=== PATIENT | male | born 1955 | race Caucasian/White ===

== ENCOUNTER 2022-08-03 08:58 | Day surgery (SDC) | payer BC, SELFPAY ==
[2022-08-03] MEDS: TETRACAINE 0.5% OPHTH 1 DROP EYE-LEFT ×2 (08:30→08:35)
[2022-08-03] MEDS: KETOROLAC OPHTH 0.5% 1 DROP EYE-LEFT ×2 (08:30→08:35)
--- NOTE | 2022-08-03 09:02 | SUR.PREOP ---
The eye drops brought by the patient (Ketorolac and Prednisolone) are examined and I have determined they are labeled by the patient's pharmacy for this patient as prescribed by the surgeon. The bottles are intact, recently obtained and appear to be correct.
[2022-08-03 09:18] VITALS: BP 142/88; PULSE 68; RESP 16; TEMP 37.3; O2SAT 98
[2022-08-03 09:22] VITALS: BMI 246.9
[2022-08-03] MEDS: ETHYL CHLORIDE 1 APPLICATION 1 APPLIC TOPICAL (09:39)
[2022-08-03] MEDS: SODIUM CHLORIDE 0.9 % (FLUSH) 10 ML SYRINGE IVF (09:39)
[2022-08-03] MEDS: TETRACAINE 0.5% OPHTH 2 DROP EYE-LEFT (09:58)
[2022-08-03] MEDS: BALANCED SALT IRRIG SOLN 15 ML EYE-LEFT (10:02)
--- NOTE | 2022-08-03 10:23 | W.ANESCHARGE ---
Anesthesia Charges Start Date/Time Anesthesia Start Date: 08/03/22 Anesthesia Start Time: 09:55 Stop Date/Time Anesthesia Stop Date: 08/03/22 Anesthesia Stop Time: 10:26 Summary Emergency: No
[2022-08-03 10:25] VITALS: BP 151/84; PULSE 78; RESP 20; TEMP 37.5
--- NOTE | 2022-08-03 12:42 | P.OPTPRC_ITS ---
Procedure Note Date of procedure: 08/03/22 Will [facility] bill your pro fee for this procedure?: Yes Procedure Description: SURGEON: Zee Murguia MD PREOPERATIVE DIAGNOSIS: Nuclear sclerotic cataract, left eye. POSTOPERATIVE DIAGNOSIS: Nuclear sclerotic cataract, left eye. NAME OF OPERATION: Phacoemulsification of cataract with posterior chamber intraocular lens implantation in the left eye. ANESTHESIA: Topical. ESTIMATED BLOOD LOSS: Less than 2 cc. COMPLICATIONS: None. PATHOLOGY SPECIMEN: None. INDICATIONS: See consult note for details. The risks, benefits and alternatives of the procedure were explained to the patient, who elected to proceed and sign ed informed consent to do so. PROCEDURE: The patient was brought to the pre-holding area where the left eye was identified as the operative eye. I placed my initials above this eye. The patient received eye drops consisting of 0.5% tetracaine, 1% tropicamide, 10% phenylephrine, and 0.5% ketorolac. The patient was then brought to the operating room where the left eye was again identified as the operative eye. The eye was prepped with Betadine and draped in the usual sterile ophthalmic fashion. A #15 super-sharp blade was used to create a paracentesis site. 1% non-preserved intracameral lidocaine was injected into the anterior chamber. Endocoat was injected into the anterior chamber. A 2.4 mm keratome was used to create a three-plane self-sealing incision 1 mm anterior to the temporal limbus. A cystotome was used to create an anterior capsular leaflet. The Utrata forceps were used to extend this to form a continuous curvilinear capsulorrhexis. Hydrodissection was performed. The cataract was removed with phacoemulsification using the [id number] technique. The irrigation and aspiration tip was used to remove the remaining cortex. Healon was injected into the capsular bag. An MIGUEL ZCB00 intraocular lens of 20.0 diopters was injected into the capsular bag. The irrigation and aspiration tip was used to remove the remaining viscoelastic. Miostat as injected into the anterior chamber due to intermittent mild iris prolapse. Balanced salt solution on a cannula was used to hydrate the wound, and the wound was found to be watertight. The pupil was noted to be round. DISPOSITION: The patient was taken to the recovery room and discharged to home in stable condition. The patient was instructed to call me or go to the emergency department with any sudden change, including dramatic loss of vision, severe pain in the eye or eyebrow region, nausea, or vomiting. The patient will follow up in the clinic tomorrow morning. Surgeon: Zee Mugruia MD
== END 2022-08-03 10:40 | disposition home or self-care (01) ==
PROVIDERS: PCP Family Medicine; Visit Provider Ophthalmology
PROC: (CPT 66984; principal; 2022-08-03 09:00)
DX: H25.12 Age-related nuclear cataract, left eye (principal)
CPT/HCPCS: 66984; 00142; A9270; J2250; J3010; V2632

== ENCOUNTER 2023-04-20 11:15 | Outpatient (RCR) | payer BC, SELFPAY | END 2023-04-20 15:15 | disposition home or self-care (01) | PROVIDERS: PCP Family Medicine; Visit Provider Family Medicine | DX: M62.81 Muscle weakness (generalized) (principal); W19.XXXS Unspecified fall, sequela; R26.81 Unsteadiness on feet; Z51.89 Encounter for other specified aftercare | CPT/HCPCS: 97110; 97112; 97116; 97162 ==

== ENCOUNTER 2023-06-05 06:26 | Outpatient (CLI) | payer BC, SELFPAY ==
--- NOTE | 2023-06-05 07:41 | W.ANESCHARGE ---
Anesthesia Charges Start Date/Time Anesthesia Start Date: 06/05/23 Anesthesia Start Time: 07:20 Stop Date/Time Anesthesia Stop Date: 06/05/23 Anesthesia Stop Time: 07:40
== END 2023-06-05 06:27 | disposition home or self-care (01) ==
LOC: OP CLINIC 06:29
PROVIDERS: PCP Family Medicine; Visit Provider Internal Medicine Gastroenterology
DX: R63.4 Abnormal weight loss (principal); K31.89 Other diseases of stomach and duodenum; K92.2 Gastrointestinal hemorrhage, unspecified; K31.7 Polyp of stomach and duodenum; D64.9 Anemia, unspecified
CPT/HCPCS: 43239; 731; 88305; J2704

== ENCOUNTER 2024-04-17 11:02 | Emergency (ER) | payer BC, MEDICARE, SELFPAY ==
[2024-04-17] VITALS (15 sets, daily range): BP systolic 154–166; BP diastolic 84–93; PULSE 69–86; RESP 16; TEMP 37; O2SAT 95–99; BMI 22.0
--- NOTE | 2024-04-17 11:32 | CRLHL7_ITS ---
For Patients: As a result of the Century Cures Act, medical imaging exams and procedure reports are released immediately into your electronic medical record. You may view this report before your referring provider. If you have questions, please contact your health care provider. Indication: Dizziness, unsteady Technique: Multiplanar, multisequence MRI of the brain obtained without contrast. Comparison: MRI brain 10/12/2021 Findings: Mild diffuse prominence of the ventricles and cortical sulci, compatible with generalized cerebral volume loss. Minor scattered FLAIR hyperintense foci throughout the supratentorial white matter, typical of chronic microangiopathy. No acute/subacute ischemia, intracranial hemorrhage, or abnormal extra-axial fluid collection. No midline shift, hydrocephalus, or herniation. Midline structures are unremarkable. Major expected intracranial flow voids are visualized. Partially opacified right posterior ethmoid air cells. Trace nonspecific fluid at the mastoid tips. Bilateral lens implants. Impression: 1. No evidence of acute intracranial abnormality, or significant interval change relative to 10/12/2021. 2. Similar mild generalized cerebral volume loss, and minimal chronic microangiopathy changes. Dictated by Angie Dockery MD @ 04/17/2024 1:03:54 PM (Electronically Signed)
--- NOTE | 2024-04-17 11:42 | ED_ITS ---
HPI - General Adult General Chief complaint: Neuro Symptoms/Altered Deficit Stated complaint: Slurred speech a few days ago, weakness, diarrhea Time Seen by Provider: 04/17/24 11:11 Source: patient and family Mode of arrival: ambulatory (Walker) Limitations: no limitations History of Present Illness HPI narrative: 68-year-old male presenting today with several concerns. Patient states that approximately 4 days ago he was taking a nap and when he woke up he had trouble moving the left side of his face and he had slurred speech for approximately 20 minutes. On Monday, which was 3 days ago he started developing increased unsteadiness and generalized weakness. Generally he uses a walker or a cane to use, he needed a wheelchair all day on Monday and now he is back to a walker. Last night he had stool incontinence and diarrhea started, he has had 5 episodes of diarrhea today. He denies chest pain or shortness of breath. No fevers or chills. No nausea or vomiting. No changes in his appetite. Denies headache, blurry vision or changes in his hearing. He denies any focal neurologic deficits including weakness on 1 side of the body. He denies returning of difficulty with his speech. He states that his face has been moving normally since. Patient denies any recent antibiotic use, no recent travel. Past medical history is significant for alcohol use disorder, renal insufficiency, elevated liver enzymes, essential tremor, history of basal cell carcinoma, hypertension. Patient takes atenolol and omeprazole daily. Denies other medications. Denies history of coronary artery disease or stroke history. His on any aspirin or anticoagulation. Patient does drink 8 mini bottles of alcohol every day, throughout the day. Related Data Home Medications ?Medication ?Instructions ?Recorded ?Confirmed folic acid 1 mg tablet 1 mg PO DAILY 08/02/22 04/17/24 magnesium oxide 500 mg PO .EVERY OTHER DAY 08/02/22 08/03/22 multivitamin 1 tab PO DAILY 08/02/22 04/17/24 thiamine HCl (vitamin B1) 100 mg 100 mg PO DAILY 08/02/22 04/17/24 tablet atenolol 25 mg tablet 25 mg PO DAILY 04/17/24 04/17/24 ferrous sulfate 325 mg (65 mg PO 04/17/24 iron) tablet,delayed release magnesium glycinate 200 mg PO 04/17/24 omeprazole 40 mg capsule,delayed 40 mg PO DAILY 04/17/24 04/17/24 release Allergies Allergy/AdvReac Type Severity Reaction Status Date / Time sertraline Allergy Unknown Verified 04/17/24 11:14 Penicillins Allergy Verified 08/03/22 09:16 Review of Systems Status of ROS: Reports: 10 or more systems reviewed and unremarkable except as noted in History and below [facility] Medical History Osteopenia of multiple sites ?M85.89 - Other specified disorders of bone density and structure, multiple sites (ICD-10) Alcohol dependence, daily use ?F10.20 - Alcohol dependence, uncomplicated (ICD-10) Renal insufficiency ?N28.9 - Disorder of kidney and ureter, unspecified (ICD-10) Macrocytic anemia ?D53.9 - Nutritional anemia, unspecified (ICD-10) Elevated PSA ?R97.20 - Elevated prostate specific antigen [PSA] (ICD-10) Elevated liver function tests ?R79.89 - Other specified abnormal findings of blood chemistry (ICD-10) Fatty liver ?K76.0 - Fatty (change of) liver, not elsewhere classified (ICD-10) Colon polyp ?K63.5 - Polyp of colon (ICD-10) Essential tremor ?G25.0 - Essential tremor (ICD-10) Basal cell carcinoma of neck ?C44.41 - Basal cell carcinoma of skin of scalp and neck (ICD-10) Basal cell carcinoma of cheek ?C44.319 - Basal cell carcinoma of skin of other parts of face (ICD-10) Sensory peripheral neuropathy ?G60.8 - Other hereditary and idiopathic neuropathies (ICD-10) Hypertension ?I10 - Essential (primary) hypertension (ICD-10) Surgical History Hx of wisdom tooth extraction ?K08.409 - Partial loss of teeth, unspecified cause, unspecified class (ICD- 10) Hx of colonoscopy ?Z98.890 - Other specified postprocedural states (ICD-10) Social History Smoking Status: Never smoker How often do you have a drink containing alcohol: 4 or more times a week Alcohol type: beer, wine and hard liquor How many standard drinks containing alcohol do you have on a typical day: 10 or more How often do you have six or more drinks on one occasion: Daily or almost daily AUDIT-C Alcohol total score: 12 Non-prescribed substance use: denies use Caffeine: Yes (daily) Exam Narrative: Exam Narrative: Well-nourished well-developed patient in no acute distress. Alert and oriented x3. Answers questions appropriately. Mood and affect are appropriate. Thoughts are goal oriented and rational. No tangential or magical thinking noted. Patient speaks in full sentences without needing to catch his breath. Speech is not slurred or pressured. HEENT: Normocephalic atraumatic. Face is symmetric. Pupils are equally round reactive to light. Extraocular muscles are intact. Conjunctivae are moist without any icterus noted. Moist mucous membranes. Posterior pharynx is normal. Neck is soft without any lymphadenopathy or thyromegaly. No masses are appreciated. Cardiovascular: Heart is regular rate and rhythm S1 and S2 are present without any murmurs. Lungs: Clear to auscultation bilaterally no wheezes rhonchi or rales are appreciated. Patient takes deep breaths without any discomfort. Abdomen: Soft and nontender nondistended with normal bowel sounds. Extremities: Bilateral lower extremities are without edema. Normal DP and PT pulses. Skin: Well perfused. Strength is 4/5 of the upper and lower extremities. Reflexes are 2+ and symmetric at the knees. Cranial nerves 3-12 are normal. [id number] is as expected with his tremor. There is no nystagmus either horizontally or vertically. No pronator drift present. Const: Vital Signs, click to edit/add: Vital Signs - 24 hr 04/17/24 11:07 04/17/24 11:32 04/17/24 11:41 Temperature 98.6 F Pulse Rate 75 Pulse Rate [Pulse Oximeter] 81 Respiratory Rate 16 Blood Pressure Blood Pressure [Ri ght Upper Arm] 163/84 H Pulse Oximetry 97 96 97 Oxygen Delivery Me thod Room Air 04/17/24 11:42 04/17/24 11:45 04/17/24 12:18 Temperature Pulse Rate 75 78 86 Pulse Rate [Pulse Oximeter] Respiratory Rate Blood Pressure 166/93 H Blood Pressure [Ri ght Upper Arm] Pulse Oximetry 97 96 95 Oxygen Delivery Me thod 04/17/24 12:30 04/17/24 12:31 04/17/24 13:00 Temperature Pulse Rate 72 79 78 Pulse Rate [Pulse Oximeter] Respiratory Rate Blood Pressure 154/90 H Blood Pressure [Ri ght Upper Arm] Pulse Oximetry 96 96 98 Oxygen Delivery Me thod 04/17/24 13:01 04/17/24 13:02 04/17/24 13:30 Temperature Pulse Rate 71 69 71 Pulse Rate [Pulse Oximeter] Respiratory Rate 16 Blood Pressure 158/89 H Blood Pressure [Ri ght Upper Arm] Pulse Oximetry 97 96 97 Oxygen Delivery Me thod 04/17/24 14:00 04/17/24 14:12 04/17/24 14:13 Temperature Pulse Rate 70 69 69 Pulse Rate [Pulse Oximeter] Respiratory Rate Blood Pressure 156/87 H Blood Pressure [Ri ght Upper Arm] Pulse Oximetry 97 98 99 Oxygen Delivery Me thod Course Course ED Course: I did consult with Dr. Polo, stroke neurologist at [facility], he recommends MRI at this time and no CT scan unless MRI is grossly abnormal. In the meantime, labs were drawn: CBC shows a slightly low hemoglobin and thrombocytopenia. INR of 0.89. Renal insufficiency with a creatinine of 1.7 and BUN of 31. LFTs elevated with an AST of 133 and ALT of 63. CRP is elevated at 6.9. Normal troponin, negative alcohol levels. EKG, read by me, shows normal sinus rhythm with a pulse of 71 in the left axis deviation. Patient was unable to give a urine sample after several hours in the ED, because of this we did give him a L of normal saline. Patient was then able to give us a urine sample, UA does show 2+ blood, ketones and proteins. The MRI results returned without any abnormalities. Did discuss these results with Dr. Polo who is not convinced that this was a neurological event verses a lcohol-induced or other illness. Given his thrombocytopenia and unremarkable MRI at this time he does not recommend putting the patient on a daily baby aspirin but this is something that the patient can discuss with his primary care provider. Vital Signs Vital signs: Initial Vital Signs Temperature 98.6 F 04/17/24 11:07 Temperature Source Temporal Artery Scan 04/17/24 11:07 Pulse Rate 81 04/17/24 11:07 Respiratory Rate 16 04/17/24 11:07 Blood Pressure 163/84 H 04/17/24 11:07 Blood Pressure Mean 110 H 04/17/24 11:07 Blood Pressure Position Sitting 04/17/24 11:07 Pulse Oximetry 97 04/17/24 11:07 Oxygen Delivery Method Room Air 04/17/24 11:07 Vital Signs Temperature 98.6 F 04/17/24 11:07 Pulse Rate 81 04/17/24 11:07 Respiratory Rate 16 04/17/24 11:07 Blood Pressure 163/84 H 04/17/24 11:07 Pulse Oximetry 97 04/17/24 11:07 Oxygen Delivery Method Room Air 04/17/24 11:07 Temperature 98.6 F 04/17/24 11:07 Pulse Rate 69 04/17/24 14:13 Respiratory Rate 16 04/17/24 13:30 Blood Pressure 156/87 H 04/17/24 14:12 Pulse Oximetry 99 04/17/24 14:13 Oxygen Delivery Method Room Air 04/17/24 11:07 Medications Administered Medications: Discontinued Medications Generic Name Dose Route Start Last Admin Trade Name Giancarlo PRN Reason Stop Dose Admin Sodium Chloride 1,000 mls @ 1,000 mls/hr 04/17/24 13:15 04/17/24 14:14 0.9 % Sodium Chloride 1000 Ml IV 04/17/24 14:14 Infused .Q1H HERNAN Infusion Medical Decision Making [facility] Narrative Medical decision making narrative: 68-year-old male presenting with several concerns including slurred speech which resolved, increased weakness now improving, diarrhea. Workup today found hematuria and renal insufficiency. Did not have patient's previous labs to compare this to but there is a note in the chart of previous renal insufficiency. MRI was unremarkable. At this time patient is recommended to follow up with primary care provider to discuss his abnormal lab results and to make sure he is feeling better over the next few days. He was unable to give us a stool sample while he was in the ER today therefore he will be sent home with a stool collecting kit to test for C diff. Encourage patient to increase water intake and decrease alcohol intake. Patient and had no other questions. Lab Data Lab results reviewed: Yes I reviewed the patient's lab results Labs: Lab Results 04/17/24 04/17/24 04/17/24 Range/Units 11:29 11:45 14:15 WBC 6.69 (4.50-11.00) K/uL RBC 4.00 L (4.30-5.90) m/uL Hgb 13.3 L (13.5-17.5) gm/dL Hct 40.5 (37.0-53.0) % MCV 101 H (80-100) fL MCH 33 (26-34) pg MCHC 33 (32-36) gm/dL RDW Coeff of Estela 13.1 (11.5-15.5) % Plt Count 73 L (140-440) K/uL Neut % (Auto) 78.2 H (42.0-72.0) % Lymph % (Auto) 14.3 L (20-44) % [place] % (Auto) 7.2 (0.0-11.0) % Eos % (Auto) 0.1 (0.0-7.0) % Baso % (Auto) 0.1 (0.0-3.0) % Neut # (Auto) 5.20 (1.7-7.0) K/uL Lymph # (Auto) 1.00 (0.90-2.90) K/uL [place] # (Auto) 0.50 (0.00-0.90) K/UL Eos # (Auto) 0.01 (0.00-0.50) K/uL Baso # (Auto) 0.01 (0.00-0.30) K/uL Abs Immat Gran (auto) 0.01 (0.00-0.30) K/uL Imm/Tot Granulo (auto) 0.1 % INR 0.89 L (0.91-1.10) Sodium 135 (135-149) mmol/L Potassium 4.3 (3.6-5.1) mmol/L Chloride 95 L (96-114) mmol/L Carbon Dioxide 22 (20-32) mmol/L Anion Gap 18 H (7-15) mEq/L BUN 31 H (7-30) mg/dL Creatinine 1.7 H (0.5-1.5) mg/dL Estimated Creat Clear 43.32 Estimated GFR 43 ml/min Glucose 104 (60-115) mg/dL Lactate 1.9 (0.5-1.9) mmol/L Calcium 9.0 (8.4-10.6) mg/dL Magnesium 1.6 (1.5-2.6) mg/dL Total Bilirubin 0.9 (0.1-1.5) mg/dL Direct Bilirubin 0.5 (0.0-0.5) mg/dL AST 133 H (12-35) U/L ALT 63 H (4-50) U/L Alkaline Phosphatase 105 (40-150) U/L Troponin I 0.01 (0.01-0.04) ng/mL C-Reactive Protein 6.9 H (0.5-1.0) mg/dL Total Protein 7.2 (6.0-8.3) g/dL Albumin 4.6 (3.3-5.0) g/dL Urine Color Yellow (Yellow) Urine Appearance Clear (Clear) Urine pH 6.5 (5.0-8.5) Ur Specific Nancy 1.020 (1.000-1.030) Urine Protein 2+ A (Negative) Urine Glucose (UA) Negative (Negative) Urine Ketones 2+ A (Negative) Urine Blood 2+ A (Negative) Urine Nitrite Negative (Negative) Urine Bilirubin 2+ A (Negative) Urine Urobilinogen 0.2 (0.2-1.0) Ur Leukocyte Esterase Negative (Negative) Urine RBC 5-10 A (0-2) Urine WBC 0-2 (0-5) Ur Squamous Epith Cells Few (None-Few) Urine Bacteria None (None) Ethyl Alcohol < 0.01 L (0.01-0.03) % POC Troponin I 0.00 L (0.01-0.04) ng/ml Imaging Data MR Brain: Attestation: I have reviewed the pertinent imaging results. Radiologist's impression: Procedure(s): MR head/brain wo [facility] Accession Number(s): [id number] cc: Roby Steiner M.D.; Soraya Ramirez M.D.~ For Patients: As a result of the 21st Century Cures Act, medical imaging exams and procedure reports are released immediately into your electronic medical record. You may view this report before your referring provider. If you have questions, please contact your health care provider. Indication: Dizziness, unsteady Technique: Multiplanar, multisequence MRI of the brain obtained without contrast. Comparison: MRI brain 10/12/2021 Findings: Mild diffuse prominence of the ventricles and cortical sulci, compatible with generalized cerebral volume loss. Minor scattered FLAIR hyperintense foci throughout the supratentorial white matter, typical of chronic microangiopathy. No acute/subacute ischemia, intracranial hemorrhage, or abnormal extra-axial fluid collection. No midline shift, hydrocephalus, or herniation. Midline structures are unremarkable. Major expected intracranial flow voids are visualized. Partially opacified right posterior ethmoid air cells. Trace nonspecific fluid at the mastoid tips. Bilateral lens implants. Impression: 1. No evidence of acute intracranial abnormality, or significant interval change relative to 10/12/2021. 2. Similar mild generalized cerebral volume loss, and minimal chronic microangiopathy changes. ECG Data Attestation: I personally reviewed and interpreted this ECG as follows: Discharge Plan Discharge Clinical Impression: Weakness, Slurred speech, Diarrhea, Hematuria, Renal insufficiency Patient Disposition: Home, Self-Care Condition: Stable Additional Instructions: Your workup today did not reveal evidence of stroke, however there were a few lab abnormalities noted. You will be sent home today with the results of all of your lab work, I recommend you take these into your physician to discuss the results and to discuss next steps. One of these abnormalities was that there was blood found in your urine. If this is something that has not been found by you primary care doctor before, you should have follow-up. Recommend that you increase water intake daily and decrease daily alcohol intake. You will also be sent home with a stool collecting kit, please bring back when possible if your diarrhea continues. Lastly, you should discuss with your primary care provider whether or not you should be on a daily baby aspirin. Prescriptions: No Action folic acid 1 mg tablet 1 mg PO DAILY magnesium oxide 500 mg tablet 500 mg PO .EVERY OTHER DAY multivitamin Tablet 1 tab PO DAILY thiamine HCl (vitamin B1) 100 mg tablet 100 mg PO DAILY atenolol 25 mg tablet 25 mg PO DAILY omeprazole 40 mg capsule,delayed release(DR/EC) 40 mg PO DAILY ferrous sulfate 325 mg (65 mg iron) tablet,delayed release (DR/EC) PO magnesium glycinate 100 mg magnesium capsule 200 mg PO Follow Up/Referrals: Roby Steiner MD [Primary Care Provider] - Stand Alone Forms: [employer] Info Instructions
[2024-04-17 11:55] LABS: Lactate* 1.9 mmol/L (0.5-1.9)
[2024-04-17 11:58] LABS: Basophils Absolute Auto 0.01 K/uL (0.00-0.30); Basophils Percent Auto 0.1 % (0.0-3.0); Eosinophils Absolute Auto 0.01 K/uL (0.00-0.50); Eosinophils Percent Auto 0.1 % (0.0-7.0); Hematocrit 40.5 % (37.0-53.0); Hemoglobin* 13.3 gm/dL (13.5-17.5); Immature Granulocytes Abs Auto 0.01 K/uL (0.00-0.30); Immature Granulocytes Pct Auto 0.1 %; Lymphocytes Percent Auto 14.3 % (20-44); Mean Corpuscular HGB Conc 33 gm/dL (32-36); Mean Corpuscular Hemoglobin 33 pg (26-34); Mean Corpuscular Volume 101 fL (80-100); Monocytes Percent Auto 7.2 % (0.0-11.0); Neutrophils Percent Auto 78.2 % (42.0-72.0); Platelet Count* 73 K/uL (140-440); RDW Coefficient of Variation % 13.1 % (11.5-15.5); White Blood Count* 6.69 K/uL (4.50-11.00)
[2024-04-17 12:03] LABS: Slide Review Reflex No
[2024-04-17 12:30] LABS: Albumin* 4.6 g/dL (3.3-5.0); Chloride* 95 mmol/L (96-114); Sodium* 135 mmol/L (135-149)
[2024-04-17 12:31] LABS: Potassium* 4.3 mmol/L (3.6-5.1)
[2024-04-17 12:32] LABS: Creatinine* 1.7 mg/dL (0.5-1.5); Est. Creatinine Clearance* 43.32; Estimated Glomerular Filt Rate 43 ml/min
[2024-04-17 12:33] LABS: Alanine Aminotransferase* 63 U/L (4-50); Alkaline Phosphatase* 105 U/L (40-150); Anion Gap 18 mEq/L (7-15); Aspartate Amino Transferase* 133 U/L (12-35); Bilirubin Direct* 0.5 mg/dL (0.0-0.5); Bilirubin Total* 0.9 mg/dL (0.1-1.5); Blood Urea Nitrogen* 31 mg/dL (7-30); Carbon Dioxide* 22 mmol/L (20-32); Glucose* 104 mg/dL (60-115); INR 0.89 (0.91-1.10); Prothrombin Time 12.5 Seconds; Total Protein* 7.2 g/dL (6.0-8.3)
[2024-04-17 12:34] LABS: Magnesium* 1.6 mg/dL (1.5-2.6)
[2024-04-17 12:35] LABS: Ethanol* < 0.01 % (0.01-0.03)
[2024-04-17 12:36] LABS: C Reactive Protein* 6.9 mg/dL (0.5-1.0)
[2024-04-17 12:45] LABS: Troponin I* 0.01 ng/mL (0.01-0.04)
[2024-04-17] MEDS: 0.9 % SODIUM CHLORIDE 1000 ml 1,000 ML IV (13:21)
[2024-04-17 14:19] LABS: Appearance Urine Clear (Clear); Bilirubin Urine 2+ (Negative); Blood Urine 2+ (Negative); Color Urine Yellow (Yellow); Glucose Urine Negative (Negative); Ketones Urine 2+ (Negative); Leukocyte Esterase Urine Negative (Negative); Nitrite Urine Negative (Negative); Protein Urine 2+ (Negative); Urobilinogen Urine 0.2 (0.2-1.0); pH Urine 6.5 (5.0-8.5)
[2024-04-17 14:27] LABS: Squamous Epithelial Cell Urine Few (None-Few); WBC Urine 0-2 (0-5)
== END 2024-04-17 14:51 | disposition home or self-care (01) ==
PROVIDERS: Emergency Provider Family Medicine; PCP Family Medicine
DX: N28.9 Disorder of kidney and ureter, unspecified (principal); R31.9 Hematuria, unspecified; R53.1 Weakness
CPT/HCPCS: 36415; 70551; 80048; 80076; 81001; 82077; 83605; 83735; 84484; 85025; 85610; 86140; 87086; 87493; 93005; 94761; 99284; J7030